=== PATIENT | female | born 2000 | race Caucasian/White ===

== ENCOUNTER → 2025-02-04 11:24 | Outpatient (REF) | payer BC, SELFPAY ==
[2025-02-04 13:11] LABS: ALT (SGPT) 52 U/L (0-35); AST (SGOT) 28 U/L (14-36); Albumin 5.0 g/dl (3.5-5.0); Alkaline Phosphatase 95 U/L (38-126); Blood Urea Nitrogen 11 mg/dl (7-17); Calcium 9.6 mg/dl (8.4-10.2); Carbon Dioxide 26 mmol/L (22-30); Chloride 105 mmol/L (98-107); Glucose 98 mg/dl (70-99); HDL Cholesterol 66 mg/dl; LDL Cholesterol, Calculated 149 mg/dl; Potassium 4.3 mmol/L (3.5-5.1); Sodium 139 mmol/L (135-145); Total Protein 8.2 g/dl (6.3-8.2); Very Low Density Lipoprotein 17 mg/dl (0-30); eGFR > 60.00
[2025-02-04 13:25] LABS: Beta HCG Quantitative < 2.39 mIU/ml
[2025-02-04 13:42] LABS: Glycohemoglobin (HgbA1c) 5.7 % (4.0-5.9)
[2025-02-04 13:57] LABS: TSH 1.48 uIU/ml (0.47-4.68)
== END ==
LOC: REG 11:24
PROVIDERS: ATTENDING PHYSICIAN Nurse Practitioner Women's Health
DX: E28.2 Polycystic ovarian syndrome (principal)
CPT/HCPCS: 36415; 80053; 80061; 82670; 83002; 83036; 83498; 84144; 84146; 84270; 84402; 84403; 84443; 84702